=== PATIENT | male | born 1950 | race Caucasian/White ===

== ENCOUNTER → 2018-07-14 07:06 | Outpatient (CLI) | payer MEDICARE, OTHER, SELFPAY ==
[2018-07-14 08:27] LABS: Alanine Aminotransferase 40 IU/L (21-72); Albumin 4.9 g/dL (3.5-5.0); Albumin Globulin Ratio 1.4 (1.0-2.8); Alkaline Phosphatase 55 U/L (38-126); Aspartate Aminotransferase 41 IU/L (17-59); BUN Creatinine Ratio 32.4 (6-22); Bilirubin Total 1.2 mg/dL (0.2-1.3); Blood Urea Nitrogen 68 mg/dL (9-20); Calcium 9.9 mg/dL (8.4-10.2); Carbon Dioxide 21 mmol/L (22-32); Chloride 91 mmol/L (98-107); Estimated Glomerular Filt Rate 31.6 mL/min (>60); Globulin 3.5 g/dL (1.7-4.1); Glucose 96 mg/dL (80-110); HEMOLYSIS < 15 (0-50); Potassium 4.1 mmol/L (3.4-5.1); Sodium 132 mmol/L (137-145); Total Protein 8.4 g/dL (6.3-8.2)
[2018-07-14 08:58] LABS: Thyroid Stimulating Hormone 0.84 uIU/mL (0.47-4.68)
[2018-07-14 09:12] LABS: Vitamin B12 491 pg/mL (239-931)
[2018-07-14 15:58] LABS: Collection Time Urine 24 Hours; Creatinine 24 Hour Urine 1598 mg/day (1000-2000); Creatinine Urine Random 104.8 mg/dL; Total Volume Urine 1525 mL
[2018-07-17 21:40] LABS: Albumin 4.2 g/dL (3.8-4.8); Alpha 1 Globulin 0.3 g/dL (0.2-0.3); Alpha 2 Globulin 0.8 g/dL (0.5-0.9); Beta 1 Globulin 0.5 g/dL (0.4-0.6); Gamma Globulin 1.3 g/dL (0.8-1.7); Protein, Total 7.6 g/dL (6.1-8.1)
[2018-07-20 10:27] LABS: Aldosterone/Renin Activity Rat 0.2 Ratio (0.9-28.9); Plama Renin, LC/MS/MS 57.56 ng/mL/h (0.25-5.82)
[2018-07-20 17:16] LABS: Total Volume 1525 mL; Urine, Metanephrine 88 mcg/24 h (90-315); Urine, Normetanephrine 286 mcg/24 h (122-676)
== END ==
PROVIDERS: PCP Physician Assistant; Visit Provider Internal Medicine
DX: I10 Essential (primary) hypertension (principal); E66.01 Morbid (severe) obesity due to excess calories
CPT/HCPCS: 36415; 80053; 82088; 82570; 82607; 83835; 84155; 84165; 84244; 84443

== ENCOUNTER → 2018-08-10 06:46 | Outpatient (CLI) | payer MEDICARE, OTHER, SELFPAY ==
[2018-08-10 08:52] LABS: Blood Urea Nitrogen 40 mg/dL (9-20); Calcium 9.4 mg/dL (8.4-10.2); Carbon Dioxide 31 mmol/L (22-32); Chloride 97 mmol/L (98-107); Estimated Glomerular Filt Rate 43.2 mL/min (>60); Glucose 114 mg/dL (80-110); HEMOLYSIS < 15 (0-50); Potassium 4.2 mmol/L (3.4-5.1); Sodium 136 mmol/L (137-145)
[2018-08-10 08:53] LABS: Creatinine Urine Random 155.7 mg/dL; Protein (Total) Urine Random 53 mg/dL (0-12); Protein Creatinine Ratio Urine 0.34 GRAM/24H
== END ==
PROVIDERS: PCP Physician Assistant; Visit Provider Internal Medicine
DX: I10 Essential (primary) hypertension (principal)
CPT/HCPCS: 36415; 80048; 82570; 84156

== ENCOUNTER → 2018-08-29 06:59 | Outpatient (CLI) | payer MEDICARE, OTHER, SELFPAY ==
[2018-08-29 08:32] LABS: BUN Creatinine Ratio 32.1 (6-22); Blood Urea Nitrogen 45 mg/dL (9-20); Calcium 9.1 mg/dL (8.4-10.2); Carbon Dioxide 28 mmol/L (22-32); Chloride 99 mmol/L (98-107); Estimated Glomerular Filt Rate 50.4 mL/min (>60); Glucose 94 mg/dL (80-110); HEMOLYSIS < 15 (0-50); Potassium 4.6 mmol/L (3.4-5.1); Sodium 136 mmol/L (137-145)
[2018-08-29 10:49] LABS: Creatinine Urine Random 131.6 mg/dL; Protein (Total) Urine Random 53 mg/dL (0-12)
== END ==
PROVIDERS: PCP Physician Assistant; Visit Provider Internal Medicine
DX: I10 Essential (primary) hypertension (principal)
CPT/HCPCS: 36415; 80048; 82570; 84156

== ENCOUNTER → 2018-09-20 07:02 | Outpatient (CLI) | payer MEDICARE, OTHER, SELFPAY ==
[2018-09-20 07:13] LABS: Bacteria Urine None Seen
[2018-09-20 07:37] LABS: Add Manual Diff / Slide Review NO; Basophils Absolute Auto 0 /uL (0-100); Basophils Percent Auto 0.5 % (0-2); Eosinophils Absolute Auto 100 /uL (0-450); Eosinophils Percent Auto 1.9 % (2-4); Hematocrit 41.2 % (41-53); Hemoglobin 13.9 g/dL (13.5-17.5); Lymphocytes Absolute Auto 1800 /uL (1100-4500); Lymphocytes Percent Auto 23.9 % (25-40); Mean Corpuscular HGB Conc 33.7 % (30-36); Mean Corpuscular Hemoglobin 32.5 PG (26-34); Mean Corpuscular Volume 96.3 fL (80-100); Monocytes Absolute Auto 800 /uL (0-900); Monocytes Percent Auto 10.7 % (3-14); Neutrophils Absolute Auto 4800 /uL (1500-7000); Platelet Count 284 X10^3/uL (150-400); Red Blood Cell Count 4.28 X10^6/uL (4.5-5.9); Red Cell Distribution Width 14.4 % (11.6-14.8); White Blood Cell Count 7.5 X10^3/uL (4.5-11.0)
[2018-09-20 08:35] LABS: HEMOLYSIS < 15 (0-50); Iron 80 ug/dL (49-181)
[2018-09-20 08:45] LABS: Percent Iron Saturation 28 % (20-50); Total Iron Binding Capacity 286 ug/dL (261-462); Transferrin 248 mg/dL (206-381)
[2018-09-20 09:11] LABS: Appearance Urine UA SL CLOUDY; Bilirubin Urine UA NEGATIVE (NEGATIVE); Color Urine UA YELLOW; Glucose Urine UA NEGATIVE (Negative); Ketones Urine UA NEGATIVE (NEGATIVE); Leukocyte Esterase Urine UA NEGATIVE (NEGATIVE); Nitrite Urine UA NEGATIVE (Negative); Occult Blood Urine UA 1+ (Negative); Protein Urine UA 1+ (Negative); pH Urine UA 5.5 (4.5-8.0)
[2018-09-20 09:27] LABS: RBC Urine 1-5/HPF (0-5/HPF); Squamous Epithelial Cell Urine 0-1 /HPF (0-5/HPF)
[2018-09-20 09:28] LABS: Culture Indicated Urine Cult Not Indicated; Mucus Urine 1+ (Negative); WBC Urine 0-1/HPF (0-5/HPF)
== END ==
PROVIDERS: PCP Physician Assistant; Visit Provider Physician Assistant
DX: R31.29 Other microscopic hematuria (principal); R71.8 Other abnormality of red blood cells; I45.9 Conduction disorder, unspecified
CPT/HCPCS: 36415; 81001; 82728; 83540; 83550; 85025

== ENCOUNTER → 2019-04-16 19:21 | Outpatient (ROUT) | payer MEDICARE, OTHER, SELFPAY ==
[2019-04-16 19:45] LABS: Add Manual Diff / Slide Review NO; Basophils Absolute Auto 0 /uL (0-100); Basophils Percent Auto 0.4 % (0-2); Eosinophils Absolute Auto 200 /uL (0-450); Eosinophils Percent Auto 2.3 % (2-4); Hematocrit 42.3 % (41-53); Hemoglobin 14.2 g/dL (13.5-17.5); Lymphocytes Absolute Auto 1900 /uL (1100-4500); Lymphocytes Percent Auto 21.1 % (25-40); Mean Corpuscular HGB Conc 33.6 % (30-36); Mean Corpuscular Hemoglobin 31.9 PG (26-34); Monocytes Absolute Auto 1000 /uL (0-900); Monocytes Percent Auto 11.7 % (3-14); Neutrophils Absolute Auto 5700 /uL (1500-7000); Neutrophils Percent Auto 64.5 % (50-75); Platelet Count 257 X10^3/uL (150-400); Red Blood Cell Count 4.46 X10^6/uL (4.5-5.9); Red Cell Distribution Width 14.9 % (11.6-14.8); White Blood Cell Count 8.8 X10^3/uL (4.5-11.0)
[2019-04-16 20:25] LABS: Alanine Aminotransferase 17 IU/L (<50); Albumin 4.3 g/dL (3.5-5.0); Albumin Globulin Ratio 1.4 (1.0-2.8); Alkaline Phosphatase 48 U/L (38-126); Aspartate Aminotransferase 27 IU/L (17-59); BUN Creatinine Ratio 28.2 (6-22); Bilirubin Total 1.2 mg/dL (0.2-1.3); Blood Urea Nitrogen 31 mg/dL (9-20); Calcium 9.8 mg/dL (8.4-10.2); Carbon Dioxide 27 mmol/L (22-32); Chloride 99 mmol/L (98-107); Cholesterol 224 mg/dL (140-199); Estimated Glomerular Filt Rate > 60.0 mL/min (>60); Globulin 3.1 g/dL (1.7-4.1); Glucose 102 mg/dL (80-110); HDL Cholesterol 71 mg/dL (40-60); HEMOLYSIS < 15 (0-50); LDL Cholesterol Calculated 139 mg/dL (<100); Magnesium 1.9 mg/dL (1.6-2.3); Potassium 4.2 mmol/L (3.4-5.1); Sodium 137 mmol/L (137-145); Total Protein 7.4 g/dL (6.3-8.2); Triglycerides 70 mg/dL (35-150)
== END ==
PROVIDERS: PCP Physician Assistant; Visit Provider Physician Assistant
DX: R25.2 Cramp and spasm (principal); I10 Essential (primary) hypertension; E78.5 Hyperlipidemia, unspecified
CPT/HCPCS: 80053; 80061; 83735; 85025

== ENCOUNTER → 2019-04-18 07:17 | Outpatient (CLI) | payer MEDICARE, OTHER, SELFPAY ==
--- NOTE | 2019-04-18 | DI.RAD.S_ITS ---
PROCEDURE: XR CHEST 2V INDICATIONS: Chest pain, unspecified TECHNIQUE: 2 views of the chest were acquired. COMPARISON: [facility], , CHEST 2 VIEW, 07/07/2011, 7:44. FINDINGS: Surgical changes and devices: None. Lungs and pleura: Lungs are clear. No pleural effusions or pneumothorax. Mediastinum: Mediastinal contours are normal. Heart size is normal. Bones and chest wall: No suspicious bony abnormalities. Soft tissues appear unremarkable. IMPRESSION: No evidence acute pulmonary process. Dictated by: Prabhu Sutton M.D. on 04/18/2019 at 9:15 Approved by: Prabhu Sutton M.D. on 04/18/2019 at 9:15
== END ==
PROVIDERS: PCP Physician Assistant; Referring Provider Physician Assistant; Visit Provider Physician Assistant
DX: R07.9 Chest pain, unspecified (principal)
CPT/HCPCS: 71046

== ENCOUNTER → 2019-05-10 07:59 | Outpatient (CLI) | payer MEDICARE, OTHER, SELFPAY ==
--- NOTE | 2019-05-10 | DI.ECHO.S_ITS ---
[place] [facility]---------+ [facility] +---------+ : : [address] : : : : [id number] : : : : Phone: [phone]+ Echocardiogram Report + + :Name: MICAELA BRUSH Study Date: 05/10/2019 Height: 70 in : :[facility] Weight: 315 lb : : Gender: Male BSA: 2.5 m2 : :: 1950 Age: 69 yrs BP: 160/90 mmHg: :Reason For Study: Chest pain : : Performed By: Annemarie Prince : :Referring: ANDREZ GARCIA : + + Interpretation Summary The study quality was technically difficult. The left ventricle is normal in size and wall thickness. The ejection fraction is estimated to be 50-55%. Regional wall motion abnormalities cannot be excluded due to limited visualization. The right ventricle is at the upper limits of normal in size. The right ventricular systolic function is normal. The aortic valve is not well visualized. There is moderate aortic valve sclerosis. There is no hemodynamically significant valvular aortic stenosis. There is mild aortic regurgitation. Procedure: A two-dimensional transthoracic echocardiogram with color flow and Doppler was performed. The study quality was technically difficult. A contrast injection of Definity was performed to improve assessment of LV function. There is no prior echocardiogram noted for this patient. Definity contrast used after patient education and consent. Patient stated he felt fine and was non-symptomatic at end of test after use of Definity contrast. The patient was in normal sinus rhythm during the exam. The patient had occasional PVCs during the exam. Left Ventricle: The left ventricle is normal in size and wall thickness. There is no thrombus. The ejection fraction is estimated to be 50-55%. Regional wall motion abnormalities cannot be excluded due to limited visualization. MV E/A: 1.0 Med Peak E' Brent: 7.9 cm/sec E/E' med: 7.8. Right Ventricle: The right ventricle is at the upper limits of normal in size. The right ventricular systolic function is normal. Atria: Both atria are normal in size. There is no Doppler evidence for an interatrial shunt. Mitral Valve: There is mild mitral annular calcification. There is trace mitral regurgitation. Aortic Valve: The aortic valve is not well visualized. The aortic valve is moderately calcified. There is moderate aortic valve sclerosis. There is no hemodynamically significant valvular aortic stenosis. There is mild aortic regurgitation. Tricuspid Valve: The tricuspid valve is normal in structure and function. There is a trace or physiologic amount of tricuspid regurgitation. Pulmonary artery pressures cannot be estimated because of the lack of a measurable TR jet velocity. Pulmonic Valve: The pulmonic valve is not well seen, but is grossly normal. There is mild pulmonic regurgitation. Great Vessels: The aortic root is normal size. The ascending aorta is at the upper limits of normal in size. The inferior vena cava was not visualized. Pericardium/ Pleura There is no pericardial effusion. There is no pleural effusion. MMode/2D Measurements & Calculations LVIDd: 5.6 cm LVOT diam: 2.3 cm LVIDs: 4.1 cm Ao root diam: 3.5 cm FS: 27.1 % asc Aorta Diam: 4.0 cm EPSS: 0.90 cm IVSd: 1.0 cm LVPWd: 1.2 cm LV garcia. diameter/BSA (cm/m^2): 2.2 LV sys. diameter/BSA (cm/m^2): 1.6 LA A2 area: 19.5 cm2 RA long axis: 4.4 cm LA A4 area: 18.2 cm2 RA area: 14.4 cm2 LA length (vol): 4.9 cm RA vol: 40.6 ml LA vol: 61.0 ml RA : 16.0 ml/m2 LA vol index: 24.1 ml/m2 RVD1 (basal): 4.0 cm TAPSE: 2.5 cm Doppler Measurements & Calculations Ao V2 max: 176.1 cm/sec LVOT Max Brent: 91.0 cm/sec Ao V2 mean: 114.8 cm/sec LV V1 max P.3 mmHg Ao max P.4 mmHg LV V1 VTI: 22.6 cm Ao mean P.1 mmHg ARNOLDO(I,D): 2.7 cm2 Ao V2 VTI: 35.1 cm ARNOLDO(V,D): 2.2 cm2 sev ratio: 0.64 ARNOLDO indexed to BSA (cm^2/m^2): 1.1 MV E max brent: 61.4 cm/sec PA V2 max: 78.1 cm/sec MV A max brent: 61.4 cm/sec PA V2 mean: 52.6 cm/sec MV E/A: 1.0 PA mean P.3 mmHg Med Peak E' Brent: 7.9 cm/sec PA Accel Time: 0.10 sec E/E' med: 7.8 Lat Peak E' Brent: 9.5 cm/sec E/E' lat: 6.5 E/e' average: 7.1 MV dec time: 0.23 sec MV P1/2t: 68.2 msec MV P1/2t max brent: 62.2 cm/sec SV(LVOT): 96.4 ml MVA(2t): 3.2 cm2 Reading Physician:06:08 PM
== END ==
PROVIDERS: PCP Physician Assistant; Referring Provider Physician Assistant; Visit Provider Physician Assistant
DX: R07.9 Chest pain, unspecified (principal); I35.1 Nonrheumatic aortic (valve) insufficiency; I37.1 Nonrheumatic pulmonary valve insufficiency
CPT/HCPCS: 93306; Q9957

== ENCOUNTER → 2019-05-17 07:21 | Outpatient (CLI) | payer MEDICARE, OTHER, SELFPAY ==
--- NOTE | 2019-05-24 08:29 | PM.PFT.1 ---
Pulmonary Function Test Referral & Results Date Patient Seen: 05/17/19 Requesting provider: Delilah White Indication: COPD Results: The spirometry demonstrates an FVC of 3.34 L which is 69% of predicted. The FEV1 was measured at 1.71 L which is 40% of predicted. The FEV1/FVC ratio was 51 which is 69% of predicted. Following the administration of bronchodilator there was a 36% improvement in FEV1 and a 131% improvement in FEF 25-75%. Lung volumes show an SVC of 3.78 L which is 77% of predicted. The diffusing capacity was measured at 32.66 which is 93% of predicted. The maximum voluntary ventilation was slightly reduced Interpretation: This study demonstrates moderately severe obstructive lung disease based on reduction FEV1. There is evidence of significant benefit following bronchodilator as noted above There is also mild restrictive lung disease present based on slight reduction SVC Compared to PFTs performed in August 2008, current study shows significant decline in FEV1 showing advancement of patient's obstructive lung disease. There is also decline in lung volumes overall suggesting progression of restrictive lung disease as well. Clinical correlation suggested
== END ==
PROVIDERS: PCP Physician Assistant; Referring Provider Physician Assistant; Visit Provider Physician Assistant
DX: J44.9 Chronic obstructive pulmonary disease, unspecified (principal)
CPT/HCPCS: 94060; 94726; 94729

== ENCOUNTER → 2019-08-06 07:07 | Outpatient (CLI) | payer MEDICARE, OTHER, SELFPAY ==
[2019-08-06 07:38] LABS: Add Manual Diff / Slide Review NO; Basophils Absolute Auto 100 /uL (0-100); Basophils Percent Auto 1.2 % (0-2); Eosinophils Absolute Auto 200 /uL (0-450); Hematocrit 42.4 % (41-53); Hemoglobin 14.5 g/dL (13.5-17.5); Lymphocytes Absolute Auto 2300 /uL (1100-4500); Lymphocytes Percent Auto 23.3 % (25-40); Mean Corpuscular HGB Conc 34.2 % (30-36); Mean Corpuscular Hemoglobin 32.7 PG (26-34); Mean Corpuscular Volume 95.6 fL (80-100); Monocytes Absolute Auto 1100 /uL (0-900); Neutrophils Absolute Auto 6300 /uL (1500-7000); Neutrophils Percent Auto 62.5 % (50-75); Platelet Count 276 X10^3/uL (150-400); Red Blood Cell Count 4.43 X10^6/uL (4.5-5.9); Red Cell Distribution Width 15.2 % (11.6-14.8)
[2019-08-06 07:50] LABS: Alanine Aminotransferase 20 IU/L (<50); Albumin 4.4 g/dL (3.5-5.0); Albumin Globulin Ratio 1.2 (1.0-2.8); Alkaline Phosphatase 57 U/L (38-126); Aspartate Aminotransferase 30 IU/L (17-59); BUN Creatinine Ratio 24.3 (6-22); Bilirubin Total 0.9 mg/dL (0.2-1.3); Blood Urea Nitrogen 45 mg/dL (9-20); Calcium 9.9 mg/dL (8.4-10.2); Carbon Dioxide 24 mmol/L (22-32); Chloride 101 mmol/L (98-107); Estimated Glomerular Filt Rate 36.4 mL/min (>60); Globulin 3.7 g/dL (1.7-4.1); Glucose 114 mg/dL (80-110); HEMOLYSIS 42 (0-50); HEMOLYSIS < 15 (0-50); Iron 89 ug/dL (49-181); Potassium 4.2 mmol/L (3.4-5.1); Sodium 136 mmol/L (137-145); Total Protein 8.1 g/dL (6.3-8.2)
[2019-08-06 08:01] LABS: Percent Iron Saturation 28 % (20-50); Total Iron Binding Capacity 317 ug/dL (261-462); Transferrin 252 mg/dL (206-381)
[2019-08-06 08:21] LABS: TSH w/ Reflex to FT4 0.78 uIU/mL (0.47-4.68)
[2019-08-06 08:25] LABS: Ferritin 154 ng/mL (18-464)
[2019-08-06 08:39] LABS: Vitamin B12 283 pg/mL (239-931)
== END ==
PROVIDERS: PCP Physician Assistant; Referring Provider Physician Assistant; Visit Provider Physician Assistant
DX: G25.81 Restless legs syndrome (principal); J44.9 Chronic obstructive pulmonary disease, unspecified; L30.9 Dermatitis, unspecified; L50.1 Idiopathic urticaria; I10 Essential (primary) hypertension; D50.9 Iron deficiency anemia, unspecified
CPT/HCPCS: 36415; 80053; 82607; 82728; 83540; 83550; 84443; 85025

== ENCOUNTER → 2019-08-10 06:51 | Outpatient (CLI) | payer MEDICARE, OTHER, SELFPAY ==
[2019-08-10 09:24] LABS: BUN Creatinine Ratio 24.3 (6-22); Blood Urea Nitrogen 36 mg/dL (9-20); Calcium 10.1 mg/dL (8.4-10.2); Carbon Dioxide 27 mmol/L (22-32); Chloride 97 mmol/L (98-107); Estimated Glomerular Filt Rate 47.1 mL/min (>60); Glucose 104 mg/dL (80-110); HEMOLYSIS < 15 (0-50); Potassium 4.7 mmol/L (3.4-5.1); Sodium 133 mmol/L (137-145)
== END ==
PROVIDERS: PCP Physician Assistant; Referring Provider Physician Assistant; Visit Provider Physician Assistant
DX: N28.9 Disorder of kidney and ureter, unspecified (principal)
CPT/HCPCS: 36415; 80048

== ENCOUNTER → 2019-08-27 06:47 | Outpatient (CLI) | payer MEDICARE, OTHER, SELFPAY ==
[2019-08-27 08:20] LABS: BUN Creatinine Ratio 27.8 (6-22); Blood Urea Nitrogen 37 mg/dL (9-20); Calcium 9.7 mg/dL (8.4-10.2); Carbon Dioxide 32 mmol/L (22-32); Chloride 98 mmol/L (98-107); Estimated Glomerular Filt Rate 53.3 mL/min (>60); Glucose 110 mg/dL (80-110); HEMOLYSIS < 15 (0-50); Potassium 4.4 mmol/L (3.4-5.1); Sodium 135 mmol/L (137-145)
== END ==
PROVIDERS: PCP Physician Assistant; Referring Provider Physician Assistant; Visit Provider Physician Assistant
DX: R79.89 Other specified abnormal findings of blood chemistry (principal)
CPT/HCPCS: 36415; 80048

== ENCOUNTER → 2020-05-27 13:22 | Outpatient (CLI) | payer MEDICARE, OTHER, SELFPAY ==
[2020-05-27] MEDS: COVID-19 VACC #1, MRNA(MOD) 100 MCG/0.5 ML VIAL IM (13:45)
== END ==
PROVIDERS: PCP Physician Assistant; Visit Provider Internal Medicine
DX: Z23 Encounter for immunization (principal)
CPT/HCPCS: 0011A; 91301

== ENCOUNTER → 2020-06-25 09:36 | Outpatient (CLI) | payer MEDICARE, OTHER, SELFPAY ==
[2020-06-25] MEDS: COVID-19 VACC #2, MRNA(MOD) 100 MCG/0.5 ML VIAL IM (09:43)
== END ==
PROVIDERS: PCP Physician Assistant; Visit Provider Internal Medicine
DX: Z23 Encounter for immunization (principal)
CPT/HCPCS: 0012A; 91301

== ENCOUNTER → 2021-02-24 07:06 | Outpatient (CLI) | payer MEDICARE, OTHER, SELFPAY ==
--- NOTE | 2021-02-24 | DI.US.S_ITS ---
PROCEDURE: US ABD AORTA ANEURYSM SCREEN INDICATIONS: SCREEN TECHNIQUE: Real time scanning was performed of the aorta and iliac arteries, with image documentation. COMPARISON: None. FINDINGS: Aorta: Proximal aortic diameter measures 2.2 cm. Mid-aorta measures 2.1 cm. Distal aortic diameter is 1.9 cm. Iliac arteries: Right common iliac artery measures 1.1 cm. Left common iliac artery measures 1.1 cm. IMPRESSION: 1. No abdominal aortic or proximal common iliac artery aneurysm. Dictated by: Ruchi Linn M.D. on 02/24/2021 at 8:23 Approved by: Ruchi Linn M.D. on 02/24/2021 at 8:26
== END ==
PROVIDERS: PCP Internal Medicine; Referring Provider Internal Medicine; Visit Provider Internal Medicine
DX: Z13.6 Encounter for screening for cardiovascular disorders (principal)
CPT/HCPCS: 76706

== ENCOUNTER → 2021-12-30 13:55 | Outpatient (CLI) | payer MEDICARE, OTHER, SELFPAY ==
[2021-12-30 15:50] LABS: Add Manual Diff / Slide Review NO; Basophils Absolute Auto 0 /uL (0-100); Basophils Percent Auto 0.5 % (0-2); Eosinophils Absolute Auto 100 /uL (0-450); Eosinophils Percent Auto 0.7 % (2-4); Hematocrit 43.4 % (41-53); Hemoglobin 14.8 g/dL (13.5-17.5); Lymphocytes Absolute Auto 2200 /uL (1100-4500); Lymphocytes Percent Auto 26.1 % (25-40); Mean Corpuscular Hemoglobin 30.1 PG (26-34); Mean Corpuscular Volume 88.7 fL (80-100); Monocytes Absolute Auto 900 /uL (0-900); Monocytes Percent Auto 10.2 % (3-14); Neutrophils Absolute Auto 5300 /uL (1500-7000); Neutrophils Percent Auto 62.5 % (50-75); Platelet Count 310 X10^3/uL (150-400); Red Cell Distribution Width 14.3 % (11.6-14.8); White Blood Cell Count 8.5 X10^3/uL (4.5-11.0)
[2021-12-30 15:58] LABS: Alanine Aminotransferase 22 IU/L (<50); Albumin 4.4 g/dL (3.5-5.0); Albumin Globulin Ratio 1.4 (1.0-2.8); Alkaline Phosphatase 61 U/L (38-126); Aspartate Aminotransferase 24 IU/L (17-59); BUN Creatinine Ratio 18.7 (6-22); Bilirubin Total 1.1 mg/dL (0.2-1.3); Blood Urea Nitrogen 17 mg/dL (9-20); Calcium 9.5 mg/dL (8.4-10.2); Carbon Dioxide 29 mmol/L (22-32); Chloride 100 mmol/L (98-107); Cholesterol 197 mg/dL (140-199); Estimated Glomerular Filt Rate > 60 mL/min (>60); Globulin 3.2 g/dL (1.7-4.1); Glucose 68 mg/dL (80-110); HDL Cholesterol 66 mg/dL (40-60); HEMOLYSIS < 15 (0-50); LDL Cholesterol Calculated 121 mg/dL (<100); Potassium 4.3 mmol/L (3.4-5.1); Sodium 139 mmol/L (137-145); Total Protein 7.6 g/dL (6.3-8.2); Triglycerides 50 mg/dL (35-150)
[2021-12-30 16:04] LABS: Hemoglobin A1C% w Est Avg Glu 5.2 % (4.0-6.0)
[2021-12-30 16:29] LABS: TSH w/ Reflex to FT4 0.55 uIU/mL (0.47-4.68)
[2021-12-30 16:33] LABS: Ferritin 133 ng/mL (18-464)
== END ==
PROVIDERS: PCP Family Medicine; Referring Provider Family Medicine; Visit Provider Family Medicine
DX: E78.5 Hyperlipidemia, unspecified (principal); G25.81 Restless legs syndrome
CPT/HCPCS: 36415; 80053; 80061; 82728; 83036; 84443; 85025

== ENCOUNTER → 2022-03-03 13:21 | Outpatient (CLI) | payer MEDICARE, OTHER, SELFPAY ==
--- NOTE | 2022-03-03 13:22 | DI.RAD.S_ITS ---
PROCEDURE: XR SHOULDER RT MIN 2V INDICATIONS: Right shoulder pain TECHNIQUE: 3 views of the shoulder were acquired. COMPARISON: , , SHOULDER MINIMUM 2 VIEW LEFT, 01/13/2015, 9:39. FINDINGS: Bones: No fractures or dislocations. [id number] acromioclavicular joint osteoarthritic changes are seen. Mild glenohumeral joint osteoarthritic changes also noted. No suspicious bony lesions. Visualized ribs appear intact. Soft tissues: No suspicious soft tissue calcifications. 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 No shoulder fracture or dislocation. No gross soft tissue abnormalities. Dictated by: Bishnu Jacobsen M.D. on 03/03/2022 at 14:14 Approved by: Bishnu Jacobsen M.D. on 03/03/2022 at 14:28
== END ==
PROVIDERS: PCP Family Medicine; Referring Provider Family Medicine; Visit Provider Family Medicine
DX: M25.511 Pain in right shoulder (principal); M19.011 Primary osteoarthritis, right shoulder
CPT/HCPCS: 73030

== ENCOUNTER → 2023-02-18 09:34 | Outpatient (CLI) | payer MEDICARE, OTHER, SELFPAY ==
[2023-02-18 10:15] LABS: Alanine Aminotransferase 24 IU/L (<50); Albumin 3.9 g/dL (3.5-5.0); Albumin Globulin Ratio 1.4 (1.0-2.8); Alkaline Phosphatase 44 U/L (38-126); Aspartate Aminotransferase 27 IU/L (17-59); BUN Creatinine Ratio 22.6 (6-22); Bilirubin Total 1.1 mg/dL (0.2-1.3); Blood Urea Nitrogen 19 mg/dL (9-20); Calcium 9.2 mg/dL (8.4-10.2); Carbon Dioxide 32 mmol/L (22-32); Chloride 101 mmol/L (98-107); Cholesterol 136 mg/dL (140-199); Estimated Glomerular Filt Rate > 60 mL/min (>60); Globulin 2.7 g/dL (1.7-4.1); Glucose 93 mg/dL (80-110); HDL Cholesterol 61 mg/dL (40-60); HEMOLYSIS < 15 (0-50); LDL Cholesterol Calculated 65 mg/dL (<100); Potassium 4.4 mmol/L (3.4-5.1); Sodium 139 mmol/L (137-145); Total Protein 6.6 g/dL (6.3-8.2); Triglycerides 52 mg/dL (35-150)
== END ==
PROVIDERS: PCP Family Medicine; Referring Provider Family Medicine; Visit Provider Family Medicine
DX: E78.5 Hyperlipidemia, unspecified (principal); G25.81 Restless legs syndrome; Z00.00 Encounter for general adult medical examination without abnormal findings
CPT/HCPCS: 36415; 80053; 80061

== ENCOUNTER → 2023-10-10 08:49 | Outpatient (CLI) | payer MEDICARE, OTHER, SELFPAY ==
--- NOTE | 2023-10-10 08:51 | DI.US.S_ITS ---
PROCEDURE: US PERIPH VENOUS LOW EXTREM RT INDICATIONS: Right leg swelling TECHNIQUE: Real-time imaging, as well as color and pulse Doppler interrogation, were performed of the lower extremity deep veins from the inguinal ligament to the popliteal fossa, with documentation of the visualized calf veins. COMPARISON: None. FINDINGS: The common femoral, femoral, popliteal, and the visualized calf veins are normally compressible, and free of intraluminal thrombus. Color and pulse Doppler demonstrate normal phasic intraluminal flow. There is normal augmentation response to distal compression maneuver. IMPRESSION: No findings of lower extremity deep venous thrombosis. Dictated by: Scout Tovar M.D. on 10/10/2023 at 9:56 Approved by: Scout Tovar M.D. on 10/10/2023 at 9:57
== END ==
PROVIDERS: PCP Family Medicine; Referring Provider Nurse Practitioner Family; Visit Provider Nurse Practitioner Family
DX: M79.89 Other specified soft tissue disorders (principal)
CPT/HCPCS: 93971

== ENCOUNTER → 2024-09-25 07:03 | Outpatient (CLI) | payer MEDICARE, OTHER, SELFPAY ==
[2024-09-25 07:35] LABS: Hematocrit 41.7 % (41-53); Hemoglobin 14.2 g/dL (13.5-17.5); Mean Corpuscular HGB Conc 34.2 % (30-36); Mean Corpuscular Hemoglobin 30.6 PG (26-34); Mean Corpuscular Volume 89.7 fL (80-100); Platelet Count 231 X10^3/uL (150-400)
[2024-09-25 07:51] LABS: Alanine Aminotransferase 24 IU/L (<50); Albumin 4.1 g/dL (3.5-5.0); Albumin Globulin Ratio 1.6 (1.0-2.8); Alkaline Phosphatase 53 U/L (38-126); Blood Urea Nitrogen 14 mg/dL (9-20); Calcium 9.4 mg/dL (8.4-10.2); Carbon Dioxide 30 mmol/L (22-32); Chloride 103 mmol/L (98-107); Cholesterol 145 mg/dL (140-199); Estimated Glomerular Filt Rate > 60 mL/min (>60); Globulin 2.6 g/dL (1.7-4.1); Glucose 92 mg/dL (70-99); HDL Cholesterol 62 mg/dL (40-60); HEMOLYSIS < 15 (0-50); Potassium 4.2 mmol/L (3.4-5.1); Sodium 138 mmol/L (137-145); Total Protein 6.7 g/dL (6.3-8.2); Triglycerides 70 mg/dL (35-150)
[2024-09-25 08:25] LABS: Ferritin 83 ng/mL (18-464)
== END ==
PROVIDERS: PCP Family Medicine; Referring Provider Family Medicine; Visit Provider Family Medicine
DX: Z00.00 Encounter for general adult medical examination without abnormal findings (principal); G25.81 Restless legs syndrome; E78.5 Hyperlipidemia, unspecified; Z12.5 Encounter for screening for malignant neoplasm of prostate
CPT/HCPCS: 36415; 80053; 80061; 82728; 85027; G0103

== ENCOUNTER 2024-12-10 09:43 | Day surgery (SDC) | payer MEDICARE, OTHER, SELFPAY ==
--- NOTE | 2024-12-10 10:37 | PM.HP.IH.1 ---
History of Present Illness History of Present Illness Date Patient Seen: 12/10/24 Chief complaint: Screening Colonoscopy [facility] Medical History Stasis dermatitis Varicose vein of leg Swelling of right lower extremity BPH (benign prostatic hyperplasia) Erectile dysfunction Encounter for annual wellness visit (AWV) in Medicare patient Hyperlipidemia Restless leg syndrome Meds Home Medications and Allergies Home Medications ?Medication ?Instructions ?Recorded ?Confirmed ?Type atorvastatin 20 mg tablet (Lipitor) 20 mg PO BEDTIME cholesterol #90 03/02/24 09/12/24 Rx tabs gabapentin 300 mg capsule See Rx Instructions .Route 03/02/24 09/12/24 Rx .COMPLEX #360 caps sildenafil (pulm.hypertension) 20 80 mg (4 x 20 mg) PO ONCE PRN 04/09/24 09/12/24 Rx mg tablet sexual activity #50 tabs clobetasol 0.05 % topical cream 1 applic topical BID #45 grams 06/27/24 09/12/24 Rx tamsulosin 0.4 mg capsule 0.8 mg (2 x 0.4 mg) PO DAILY #180 07/03/24 09/12/24 Rx caps sodium,potassium,mag sulfates 17.5 See Rx Instructions PO .COMPLEX 11/12/24 Rx gram-3.13 gram-1.6 gram oral soln #354 mL (Suprep Bowel Prep Kit) Allergies Allergy/AdvReac Type Severity Reaction Status Date / Time No Known Drug Allergies Allergy Unverified 07/03/24 15:18 Exam Narrative Exam Narrative: Chest clear to auscultation percussion Cardiac exam reveals no S3 or murmur Abdomen is soft nontender Assessment & Plan Assessment & Plan narrative: History of colon polyps with last colonoscopy before COVID. Risks, benefits, alternatives have been explained. Time-Based Coding :: [TOTAL MINUTES] spent with patient and on the chart (including review of chart, obtaining history, exam, reviewing outside data, placing orders, documenting exam and treatment plan, and counseling patient) on [DATE]. PROFEE [employer] Document charge(s): No
--- NOTE | 2024-12-10 10:37 | SUR.PREOP ---
IV LR not started and albuteral tx not given per MD. pt requests no sedation
[2024-12-10 10:39] VITALS: BP 178/88; PULSE 75; RESP 16; TEMP 36.3; O2SAT 98
--- NOTE | 2024-12-10 10:39 | PM.OP.COLON ---
Operative Date/Time/Diagnoses Date of procedure: 12/10/24 Time of procedure: 11:42 Pre-op diagnosis: See indication and findings Post-op diagnosis: same Procedure & Clinicians Study performed: Colonoscopy Same procedure(s) as scheduled: Yes Indications: History of colon polyps and family history of colon cancer Surgeon: Wilton Fountain Anesthesia Type: Other Procedure Notes Procedure in detail: After informed consent was obtained the patient was placed in left lateral decubitus position. The video colonoscope was introduced the rectum slowly advanced cecum. Preparation was good. On slow withdrawal mucosa was carefully examined. The scope was removed. The patient tolerated procedure well. Blood loss none Complications none Sedation mac Findings 1. Normal colonoscopy to cecum Patient should have follow-up colonoscopy at age 80
[2024-12-10 11:46] VITALS: BP 158/88; PULSE 84; RESP 16; O2SAT 96
== END 2024-12-10 11:46 | disposition home or self-care (01) ==
PROVIDERS: PCP Family Medicine; Referring Provider Family Medicine; Visit Provider Internal Medicine Gastroenterology
PROC: 0DJD8ZZ Inspection of Lower Intestinal Tract, Via Natural or Artificial Opening Endoscopic (ICD-10-PCS; CPT 45378; principal; 2024-12-10 11:00)
DX: Z12.11 Encounter for screening for malignant neoplasm of colon (principal); Z86.0100 Personal history of colon polyps, unspecified; Z80.0 Family history of malignant neoplasm of digestive organs
CPT/HCPCS: G0105